=== PATIENT | female | born 1990 | race Caucasian/White ===

== ENCOUNTER 2017-06-06 05:33 | Observation (INO) | payer MEDICAID ==
[2017-06-06] MEDS ORDERED: IV RINGERS,LACTATED 1000ML 1,000 ML IV SCH (05:45)
[2017-06-06 06:07] LABS: BILIRUBIN,URINE NEGATIVE (NEG); GLUCOSE,URINE NEGATIVE (NEG); NITRITE,URINE NEGATIVE (NEG); PH,URINE 6.5; PROTEIN,URINE NEGATIVE (NEG-TRACE); UROBILINOGEN,URINE 0.2 mg/dL (0.2 mg/dL)
[2017-06-06 06:12] LABS: BARBITURATES NEG (NEG); BENZODIAZEPINES POS (NEG); CANNABINOIDS POS (NEG); COCAINE NEG (NEG); METHADONE NEG (NEG); OPIATES NEG (NEG); PHENCYCLIDINE NEG (NEG)
[2017-06-06 06:21] LABS: BACTERIA,URINE MANY /HPF (0-FEW); SQUAMOUS EPITHELIAL CELL,UR MANY /LPF
[2017-06-06 06:22] LABS: RBC,URINE OCC /HPF (0-2)
--- NOTE | 2017-06-06 07:24 | RAD ---
Obstetrical ultrasound-Limited, 06/06/2017: History: Decreased movement There is a single intrauterine fetus present in breech orientation. The biparietal diameter measures 3.9 cm compatible with a gestational age of 18 weeks. This corresponds well to the other measurements and yields an average gestational age of 18 weeks and 2 days and an EDC of 11/05/2017. Normal activity and heart motion were seen. The heart rate was 137 bpm. A full survey was not performed at this time. A normal amount of amniotic fluid is present. The placenta lies anteriorly IMPRESSION: Single viable intrauterine fetus of 18-19 weeks gestational age as described above.
== END 2017-06-06 07:10 | disposition home or self-care (01) ==
LOC: 3 SO LND 05:33
PROVIDERS: ADMIT Obstetrics & Gynecology; ATTEND Obstetrics & Gynecology
DX: O36.8120 Decreased fetal movements, second trimester, not applicable or unspecified (principal); Z3A.18 18 weeks gestation of pregnancy
CPT/HCPCS: 76815; 80307; 81001; 87086; G0378; G0379; G0479